=== PATIENT | female | born 1960 | race Caucasian/White ===

== ENCOUNTER 2023-12-12 12:17 | Emergency (ER) | payer BC, SELFPAY ==
[2023-12-12 12:20] VITALS: BP 144/88; PULSE 103; RESP 18; TEMP 37.2; O2SAT 98; BMI 22.5
--- NOTE | 2023-12-12 13:11 | ED.ABDPAIN ---
HPI - Abdominal Pain General Chief Complaint: Abdominal Pain Stated Complaint: abdominal mass Time Seen by Provider: 12/12/23 12:48 History of Present Illness HPI narrative: This 63-year-old female comes in reporting some upper epigastric pain on and off for the past several weeks. She states that it seems to be getting more prominent such that she decided to come into urgent care today. She was sent here from urgent care because of concern for pulsatile mass in her abdomen just right of midline. The patient does describe some nausea symptoms but no vomiting or diarrhea. She did have some mild constipation that was corrected with [id number] medicine. She denies having any fevers. Related Data Home Medications Medication Instructions Recorded Confirmed bupropion HCl 150 mg 24 hr tablet, 150 mg PO QAM 11/18/23 12/12/23 extended release gabapentin 300 mg capsule 300 mg PO 3XD 11/18/23 12/12/23 hydrocodone 5 mg-acetaminophen 325 1 tab PO Q6H PRN 11/18/23 12/12/23 mg tablet metaxalone 800 mg tablet 800 mg PO 3XD 11/18/23 12/12/23 omeprazole 20 mg capsule,delayed 20 mg PO DAILY 11/18/23 12/12/23 release simvastatin 20 mg tablet 20 mg PO QPM 11/18/23 12/12/23 Allergies Allergy/AdvReac Type Severity Reaction Status Date / Time No Known Drug Allergies Allergy Verified 12/12/23 12:26 Review of Systems Status of ROS Reports: 10 or more systems reviewed and unremarkable except as noted in History and below Narrative Constitutional: No fevers, no weight gain or loss. Eyes: No discharge. No vision changes. HENT: No congestion, no sore throat, no ear pain. Cardiovascular: No chest pain, no palpitations. Respiratory: No shortness of breath, no wheezes, no cough. Gastrointestinal: No vomiting, no diarrhea. Abdominal discomfort as described above. Genitourinary: No dysuria, no hematuria. Musculoskeletal: Normal range of motion. Skin: No rashes, no pruritis. Neurological: No dizziness, weakness, sensory change, speech change. Endo/Heme/Allergies: No bruising or bleeding. No polydipsia. Pysch: no suicidality, no anxiety, no insomnia. All other systems reviewed and are negative. 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 HEENT: Normocephalic, atraumatic. Neck: Normal range of motion. Nontender. Supple. Heart: Regular. No murmurs. Normal rate. Intact distal pulses. Lungs: Clear to auscultation. No chest discomfort. No wheezes, rhonchi, or rales. Abdomen: Normal bowel sounds. Mild tenderness. No rebound tenderness. Palpable aorta. Genitalia: Deferred. Back: No midline tenderness. Normal range of motion. Extremities: Normal range of motion. No injury. Skin: Intact. No rash. Warm. No erythema or pallor. Neurologic: No altered sensation. No weakness. Alert and oriented. Psychiatric: No suicidality. No anxiety or depression. No insomnia. Nursing notes and vitals signs are reviewed. Const: Vital Signs, click to edit/add: Vital Signs - 24 hr 12/12/23 12:20 Temperature 99.0 F Pulse Rate [Right Pulse Oximeter] 103 H Respiratory Rate 18 Blood Pressure [Ri ght Upper Arm] 144/88 H Pulse Oximetry 98 Oxygen Delivery Me thod Room Air Course Vital Signs Vital signs: Initial Vital Signs Temperature 99.0 F 12/12/23 12:20 Temperature Source Temporal Artery Scan 12/12/23 12:20 Pulse Rate 103 H 12/12/23 12:20 Respiratory Rate 18 12/12/23 12:20 Blood Pressure 144/88 H 12/12/23 12:20 Blood Pressure Mean 106 H 12/12/23 12:20 Blood Pressure Position Sitting 12/12/23 12:20 Pulse Oximetry 98 12/12/23 12:20 Oxygen Delivery Method Room Air 12/12/23 12:20 Vital Signs Temperature 99.0 F 12/12/23 12:20 Pulse Rate 103 H 12/12/23 12:20 Respiratory Rate 18 12/12/23 12:20 Blood Pressure 144/88 H 12/12/23 12:20 Pulse Oximetry 98 12/12/23 12:20 Oxygen Delivery Method Room Air 12/12/23 12:20 Temperature 99.0 F 12/12/23 12:20 Pulse Rate 103 H 12/12/23 12:20 Respiratory Rate 18 12/12/23 12:20 Blood Pressure 144/88 H 12/12/23 12:20 Pulse Oximetry 98 12/12/23 12:20 Oxygen Delivery Method Room Air 12/12/23 12:20 MDM - Abdominal Pain MDM Narrative Medical decision making narrative: This 63-year-old female comes in from urgent care where there was concern of a pulsatile mass in her abdomen. She comes in here for imaging to evaluate this. I did use bedside ultrasound and observed her right kidney, gallbladder, liver, and aorta. These all showed normal findings. There is no sign of aortic aneurysm. The patient does have a palpable aorta as her abdomen is not obese. The patient has been having some discomfort in her upper abdomen that is somewhat related to food intake. She states that her mother had gallbladder problems and it ended up having a cancer in this area. She comes in with this in the background with regard to concern about her own symptoms. A CT scan of the abdomen and pelvis is obtained. This was to be done with IV contrast but the IV infiltrated so the scan was done without contrast. This returns with normal results. She does have a nodule on the right adrenal gland and cyst in the liver. These are not new findings for her by her report. Lab results returned with normal findings also. Patient is reassured with this and feels okay to return home. I did advise her to increase her omeprazole from 20 mg to 40 mg for a week or 10 days. If symptoms are persistent she is encouraged to follow-up with her primary doctor with a furniture rental consultant. Lab Data Labs: Lab Results 12/12/23 Range/Units 13:47 WBC 7.93 (4.50-11.00) K/uL RBC 4.41 (4.00-5.20) m/uL Hgb 13.2 (12.0-16.0) gm/dL Hct 40.6 (33.0-51.0) % MCV 92 (80-100) fL MCH 30 (26-34) pg MCHC 33 (32-36) gm/dL RDW Coeff of Mickey 12.5 (11.5-15.5) % Plt Count 289 (140-440) K/uL Neut % (Auto) 65.9 (42.0-72.0) % Lymph % (Auto) 24.7 (20-44) % Moore % (Auto) 6.9 (0.0-11.0) % Eos % (Auto) 1.0 (0.0-7.0) % Baso % (Auto) 0.6 (0.0-3.0) % Neut # (Auto) 5.22 (1.7-7.0) K/uL Lymph # (Auto) 1.96 (0.90-2.90) K/uL Moore # (Auto) 0.50 (0.00-0.90) K/UL Eos # (Auto) 0.08 (0.00-0.50) K/uL Baso # (Auto) 0.05 (0.00-0.30) K/uL Abs Immat Gran (auto) 0.07 (0.00-0.30) K/uL Imm/Tot Granulo (auto) 0.9 % Sodium 136 (135-149) mmol/L Potassium 4.0 (3.6-5.1) mmol/L Chloride 105 (96-114) mmol/L Carbon Dioxide 21 (20-32) mmol/L Anion Gap 10 (7-15) mEq/L BUN 11 (7-30) mg/dL Creatinine 0.6 (0.5-1.5) mg/dL Estimated Creat Clear 46.13 Estimated GFR 101 ml/min Glucose 100 (60-115) mg/dL Calcium 9.3 (8.4-10.6) mg/dL Total Bilirubin 0.5 (0.1-1.5) mg/dL Direct Bilirubin 0.1 (0.0-0.5) mg/dL AST 47 H (12-35) U/L ALT 19 (4-35) U/L Alkaline Phosphatase 66 (40-150) U/L Total Protein 7.1 (6.0-8.3) g/dL Albumin 4.4 (3.3-5.0) g/dL Imaging Data CT scan - abdomen: Radiologist's impression: 1. A 2 cm low dense lesion segment 6 of the liver; suggest obtaining a CT of the liver with intravenous contrast or focused ultrasound examination for further assessment. 2. A 2.4 cm nodule right adrenal gland with average Hounsfield units measuring under 6; rule out lipid rich adenoma. 3. Total hip arthroplasty on the right. 4. Diverticulosis sigmoid colon without any CT evidence of diverticulitis or abscess. Discharge Plan Discharge Clinical Impression: Abdominal pain Patient Disposition: Home, Self-Care Condition: Stable Additional Instructions: Continue current plans. Take omeprazole 40 mg daily for 7-10 days. Follow-up with primary physician or with [facility] if not improving. Return if worsening. Prescriptions: No Action omeprazole 20 mg capsule,delayed release(DR/EC) 20 mg PO DAILY simvastatin 20 mg tablet 20 mg PO QPM hydrocodone-acetaminophen 5-325 mg tablet 1 tab PO Q6H PRN bupropion HCl 150 mg tablet extended release 24 hr 150 mg PO QAM gabapentin 300 mg capsule 300 mg PO 3XD metaxalone 800 mg tablet 800 mg PO 3XD Follow Up/Referrals: Provider,Not a Local [Primary Care Provider] - Stand Alone Forms: [employer] Info Instructions Procedures Ultrasound Biliary exam #1: Anatomical areas examined: gallbladder, long and short axis and common bile duct Indications: RUQ/epigastric pain Exam type: limited abdominal ultrasound; RUQ Impression: normal exam Description/Findings: Normal appearing gallbladder and common bile duct. Aorta is also visualized and shows no sign of aneurysm. Her aorta does course close to her abdominal wall.
--- NOTE | 2023-12-12 13:28 | CRLHL7_ITS ---
For Patients: As a result of the Century Cures Act, medical imaging exams and procedure reports are released immediately into your electronic medical record. You may view this report before your referring provider. If you have questions, please contact your health care provider. INDICATION: Epigastric abdominal pain. COMPARISON: None. TECHNIQUE: CT abdomen and pelvis without intravenous contrast; coronal and sagittal reformats. FINDINGS: No abnormal intra pulmonary nodular densities through the lung bases. No evidence of pleural effusion. Normal size cardiac silhouette without any pericardial effusion. A 2 cm low dense lesion segment 6 of the liver; needs further assessment by obtaining a contrast-enhanced CT of the liver or a focused ultrasound examination of the right hepatic lobe. No other focal hepatic or splenic pathology. No pancreatic pathology. Gallbladder is unremarkable. The left adrenal gland is normal. A 2.4 cm nodule right adrenal gland with average Hounsfield units measuring less than 6 most likely indicating a lipid rich adenoma. No kidney stones or obstructive uropathy. No retroperitoneal lymphadenopathy. No evidence of abdominal or pelvic ascites. No pneumoperitoneum or intestinal obstruction. The appendix is not clearly visualized; no inflammatory changes surrounding the cecum. Total hip arthroplasty on the right. Diverticulosis sigmoid colon without any CT evidence of diverticulitis or abscess. Impression: 1. A 2 cm low dense lesion segment 6 of the liver; suggest obtaining a CT of the liver with intravenous contrast or focused ultrasound examination for further assessment. 2. A 2.4 cm nodule right adrenal gland with average Hounsfield units measuring under 6; rule out lipid rich adenoma. 3. Total hip arthroplasty on the right. 4. Diverticulosis sigmoid colon without any CT evidence of diverticulitis or abscess. Please note that all CT scans at this facility use dose modulation, iterative reconstruction, and/or weight-based dosing when appropriate to reduce radiation dose to as low as reasonably achievable. Dictated by Helen Dean MD @ 12/12/2023 3:35:36 PM (Electronically Signed)
[2023-12-12 14:14] LABS: Albumin* 4.4 g/dL (3.3-5.0); Chloride* 105 mmol/L (96-114); Sodium* 136 mmol/L (135-149)
[2023-12-12 14:16] LABS: Anion Gap 10 mEq/L (7-15); Carbon Dioxide* 21 mmol/L (20-32); Creatinine* 0.6 mg/dL (0.5-1.5); Est. Creatinine Clearance* 46.13; Estimated Glomerular Filt Rate 101 ml/min
[2023-12-12 14:17] LABS: Alanine Aminotransferase* 19 U/L (4-35); Alkaline Phosphatase* 66 U/L (40-150); Bilirubin Direct* 0.1 mg/dL (0.0-0.5); Bilirubin Total* 0.5 mg/dL (0.1-1.5); Blood Urea Nitrogen* 11 mg/dL (7-30); Calcium* 9.3 mg/dL (8.4-10.6); Glucose* 100 mg/dL (60-115); Total Protein* 7.1 g/dL (6.0-8.3)
[2023-12-12 14:18] LABS: Basophils Absolute Auto 0.05 K/uL (0.00-0.30); Basophils Percent Auto 0.6 % (0.0-3.0); Eosinophils Absolute Auto 0.08 K/uL (0.00-0.50); Hematocrit 40.6 % (33.0-51.0); Hemoglobin* 13.2 gm/dL (12.0-16.0); Immature Granulocytes Abs Auto 0.07 K/uL (0.00-0.30); Immature Granulocytes Pct Auto 0.9 %; Lymphocytes Absolute Auto 1.96 K/uL (0.90-2.90); Lymphocytes Percent Auto 24.7 % (20-44); Mean Corpuscular HGB Conc 33 gm/dL (32-36); Mean Corpuscular Hemoglobin 30 pg (26-34); Mean Corpuscular Volume 92 fL (80-100); Monocytes Percent Auto 6.9 % (0.0-11.0); Neutrophils Absolute Auto 5.22 K/uL (1.7-7.0); Neutrophils Percent Auto 65.9 % (42.0-72.0); Platelet Count* 289 K/uL (140-440); RDW Coefficient of Variation % 12.5 % (11.5-15.5); Red Blood Count 4.41 m/uL (4.00-5.20); White Blood Count* 7.93 K/uL (4.50-11.00)
[2023-12-12 14:19] LABS: Slide Review Reflex No
[2023-12-12 14:30] LABS: Aspartate Amino Transferase* 47 U/L (12-35)
--- NOTE | 2023-12-12 15:05 | ED.NURSE ---
assessed the saline lock in CT and is infusing well with no infiltration noted. patient expressed to imaging hurts but flushed with ease. patient returned to ED and wrapped with warm blanket and reassessed saline lock found to be patent. given some water to sip on and reconnected to bp and pusle ox.
== END 2023-12-12 16:17 | disposition home or self-care (01) ==
PROVIDERS: Emergency Provider Emergency Medicine Emergency Medical Services
DX: R10.9 Unspecified abdominal pain (principal)
CPT/HCPCS: 36415; 74176; 74177; 76705; 80048; 80076; 85025; 99284; Q9967